=== PATIENT | male | born 1995 | race Hispanic/Latino ===

== ENCOUNTER 2018-11-08 19:17 | Emergency (ER) | payer OTHER ==
[2018-11-08] MEDS ORDERED: AMOXICILLIN 500 MG CAPSULE PO ONE (19:29)
[2018-11-08] MEDS ORDERED: IBUPROFEN 600 MG TABLET ONE (19:29)
== END 2018-11-08 20:21 ==
LOC: EDH 19:17
DX: K08.9 Disorder of teeth and supporting structures, unspecified (principal)